=== PATIENT | male | born 1995 | race Caucasian/White ===

== ENCOUNTER 2016-07-02 02:54 | Emergency (ER) | payer MEDICAID ==
[2016-07-02] MEDS ORDERED: NO HOME MEDICATION XX (03:24)
== END 2016-07-02 05:20 ==
LOC: EDMED 02:54
DX: F32.9 Major depressive disorder, single episode, unspecified (principal); F12.90 Cannabis use, unspecified, uncomplicated; F17.200 Nicotine dependence, unspecified, uncomplicated